=== PATIENT | female | born 1955 | race Caucasian/White ===

== ENCOUNTER 2016-03-25 09:51 | Outpatient (CLI) | payer OTHER ==
[2016-03-25 10:32] LABS: Eosinophils 3 % (0-10); Hemoglobin 14.4 g/dL (12.0-16.0); Lymphocytes 27 % (21-51); MDiff Complete? YES; Mean Corpuscular HGB CONC 34.2 g/dL (32.0-36.0); Mean Corpuscular Hemoglobin 31.2 pg (27.0-31.0); Mean Corpuscular Volume 91.4 fl (81.0-99.0); Mean Platelet Volume 8.5 fL (7.4-10.4); Monocytes 8 % (0-10); Neutrophil 62 % (42-75); Platelet Count 257 thou/uL (130-400); RBC Distribution Width 11.7 % (11.5-14.5)
[2016-03-25 10:35] LABS: Hemoglobin A1c 4.6 % (4.0-6.0)
[2016-03-25 10:43] LABS: ALT (SGPT) 13 U/L (0-55); AST (SGOT) 13 U/L (5-34); Alkaline Phosphatase 77 U/L (40-150); Anion Gap 14 mmol/L (10-20); BUN (Urea Nitrogen) 16 mg/dL (9.8-20.1); Bilirubin, Total 0.5 mg/dL (0.2-1.2); Calc. Creatinine Clearance 0 mL/min (70-130); Calcium 9.1 mg/dL (7.8-10.44); Carbon Dioxide 24 mmol/L (22-29); Cardiac Risk 4.6 (Less than 4.5); Chloride 104 mmol/L (98-107); Cholesterol 208 mg/dL (< 200 Desired); Estimated GFR-MDRD 78; Globulin 3.7 g/dL (2.4-3.5); Glucose 90 mg/dL (70-105); HDL Cholesterol 45 mg/dL (>60 Neg Risk); LDL Cholesterol, Calculated 145 mg/dL; Potassium 4.4 mmol/L (3.5-5.1); Protein, Total 7.7 g/dL (6.0-8.3); Sodium 138 mmol/L (136-145); Triglycerides 92 mg/dL (Less than 150)
[2016-03-25 12:32] LABS: Free T4 (Free Thyroxine) 1.27 ng/dL (0.70-1.48); Thyroid Stimulating Hormone 1.1471 uIU/mL (0.35-4.94); Vitamin D, 25 Hydroxy 26.5 ng/mL (> 30.0)
== END 2016-03-25 09:52 | disposition home or self-care (01) ==
LOC: MADLABBHPM 09:51
PROVIDERS: ATTEND Family Medicine
DX: R63.5 Abnormal weight gain (principal)
CPT/HCPCS: 36415; 80053; 80061; 82306; 83036; 84439; 84443; 85025